=== PATIENT | male | born 1950 | race Caucasian/White ===

== ENCOUNTER 2019-07-05 00:19 | Day surgery (SDC) | payer OTHER ==
[2019-07-05] MEDS ORDERED: CEPH500 (11:04)
[2019-07-05] MEDS ORDERED: HYDROCHLOROTH12.5 MG PO (11:07)
[2019-07-05] MEDS ORDERED: LISI20 PO (11:08)
[2019-07-05] MEDS ORDERED: ADVIL LIQUI-GE200 MG PO (11:10)
[2019-07-05] MEDS ORDERED: Aspir 8181 MG PO (11:11)
[2019-07-05] MEDS ORDERED: TURMERIC 500 M1 EACH PO (11:11)
--- NOTE | 2019-07-05 11:28 | NUR ---
PT REPORTS HE DRANK 32 OUNCES WATER THIS MORNING. BLADDER SCAN SHOWING 528 ML. PT TO BATHROOM AND VOIDED 15ML YELLOW URINE. MEASURED IN MEDICINE CUP TO VERIFY AMOUNT. POST VOID SCAN SHOWS 572 ML IN BLADDER. EXPLAINED TO PT THAT RN CAN CALL DR AND GET ORDER TO PLACE TITUS TO DRAIN BLADDER. REPORTS "NO, THIS HAPPENS ALL THE TIME AND I JUST VOID A LITTLE BIT A T/O THE DAY" DID REPORT OCCASIONALLY VOIDS AROUND 50-100ML BUT NOT OFTEN. DENIES PAIN OR URGE TO VOID.
== END 2019-07-05 10:09 | disposition home or self-care (01) ==
LOC: ATC 00:19
DX: R33.9 Retention of urine, unspecified (principal); I10 Essential (primary) hypertension; E78.00 Pure hypercholesterolemia, unspecified; E78.5 Hyperlipidemia, unspecified; M16.11 Unilateral primary osteoarthritis, right hip; Z79.899 Other long term (current) drug therapy; Z79.82 Long term (current) use of aspirin
CPT/HCPCS: 51798

== ENCOUNTER → 2022-03-24 | Outpatient (CLI) | payer OTHER ==
[~2022-03-24] MED LIST: ADVIL LIQUI-GE200 MG PO; Aspir 8181 MG PO; CEPH500; HYDROCHLOROTH12.5 MG PO; LISI20 PO; TURMERIC 500 M1 EACH PO
== END | disposition home or self-care (01) ==
LOC: LAB SHORT 08:45 → PLD 08:45
DX: L82.1 Other seborrheic keratosis (principal)
CPT/HCPCS: 88305